=== PATIENT | male | born 1935 | race Caucasian/White ===

== ENCOUNTER 2016-12-13 08:17 | Day surgery (SDC) | payer OTHER ==
[~2016-12-13] VITALS: Ht 161.3 cm; Wt 79.0 kg
[~2016-12-13 08:17] MED LIST: ASPIRIN325 MG PO; ATORVASTATIN PO; CEFTIN500 MG PO; CHOLESTYRAMINE L4 GM PO; CHOLESTYRAMINE PO; CHOLESTYRAMINE378 GM PO; Ceftin PO; FLORASTOR250 MG PO; GLIPIZIDE 10 MG; GLUCOTROL XL10 MG PO; GLUCOTROL10 MG PO; LANTUS 10100 UNITS/; LANTUS 3 M100 UNITS1 SC; LIPITOR80 MG PO; MAVIK2 MG PO; METOPROLOL SUCC50 MG PO; REPAGLINIDE2 MG PO; TAMSULOSIN HCL0.4 MG PO; TOPROL XL50 MG PO; TRANDOLAPRIL2 MG; TRIAMCINOLONE ACETON TD; TYLENOL REGULA325 MG PO; VENLAFAXINE HC150 M1 PO
[2016-12-13 09:19] LABS: POINT-OF-CARE METER ID UU13113696
== END 2016-12-13 15:20 | disposition home or self-care (01) ==
LOC: CATH 08:17
PROVIDERS: Internal Medicine Cardiovascular Disease
DX: I25.10 Atherosclerotic heart disease of native coronary artery without angina pectoris (principal); I25.2 Old myocardial infarction; E11.9 Type 2 diabetes mellitus without complications; I10 Essential (primary) hypertension; E78.5 Hyperlipidemia, unspecified; Z79.82 Long term (current) use of aspirin; Z79.4 Long term (current) use of insulin; Z79.899 Other long term (current) drug therapy; Z85.46 Personal history of malignant neoplasm of prostate
CPT/HCPCS: 82948; 93005; C1769; C1887; J1644; J2250; J3010

== ENCOUNTER 2017-05-01 16:34 | Observation (INO) | payer OTHER ==
[~2017-05-01] VITALS: Ht 162.6 cm; Wt 83.0 kg
[2017-05-01 17:22] LABS: EOSINOPHIL (%) 0.9 % (0-5); EOSINOPHIL COUNT 0.1 K/uL (0-0.3); HEMATOCRIT 45.8 % (38.0-50.0); IMMATURE GRANULOCYTE (%) 0.7 % (0.0-0.7); IMMATURE GRANULOCYTE COUNT 0.1 K/uL; INSTRUMENT ABS NEUTROPHIL CT 5.2 K/uL; LYMPHOCYTE COUNT 2.1 K/uL (1.0-2.8); MCH 30.7 PG (29.0-34.0); MCHC 34.9 G/DL (30.0-36.0); MCV 87.9 FL (86-99); MEAN PLAT.VOLUME 8.6 uM^3 (9.0-12.4); MONOCYTE (%) 7.6 % (3-12); MONOCYTE COUNT 0.6 K/uL (0-0.8); NEUTROPHIL (%) 64.2 % (45-76); NEUTROPHIL COUNT 5.2 K/uL (1.8-6.4); PLATELET COUNT 224 K/uL (156-360); RBC DIS.WIDTH-SD 39.2 % (39-53); RED BLOOD COUNT 5.21 M/uL (4.00-5.50); WHITE BLOOD COUNT 8.2 K/uL (4.1-10.2)
[2017-05-01 17:41] LABS: CHLORIDE 103 mEq/L (99-109); SODIUM 139 mEq/L (136-147)
[2017-05-01 17:44] LABS: GLUCOSE 221 mg/dL (70-99); TROP-I INTERPRETATION NEGATIVE; TROPONIN-I < 0.01 ng/mL (0.0-0.30)
[2017-05-01 17:45] LABS: ANION GAP 19 MEQ/L (2-14)
[2017-05-01 17:46] LABS: TOTAL BILIRUBIN 1.1 mg/dL (0.0-1.0)
[2017-05-01 17:47] LABS: ALKALINE PHOSPHATASE 64 IU/L (3-129); GFR ESTIMATE (CALCULATED) > 59 mL/min/
[2017-05-01 17:48] LABS: UREA NITROGEN (BUN) 15 mg/dL (9-23)
[2017-05-01 17:50] LABS: CREATINE KINASE 60 IU/L (1-294); TOTAL CK 60 IU/L (1-294)
[2017-05-01 18:05] LABS: POTASSIUM 3.6 mEq/L (3.7-5.4)
[2017-05-01 20:57] LABS: TROP-I INTERPRETATION NEGATIVE; TROPONIN-I < 0.01 ng/mL (0.0-0.30)
[2017-05-01 21:09] LABS: ADD MIUA? NO; BILIRUBIN NEGATIVE; BLOOD NEGATIVE; COLOR YELLOW ((YELLOW)); GLUCOSE (STRIP) 150; KETONES 20; LEUKOCYTES NEGATIVE; NITRITE NEGATIVE; PROTEIN (STRIP) 30; SPECIFIC GRAVITY 1.021 (1.000-1.030); UCUL ADDED? NO; UROBILINOGEN 0.2 MG/DL (0.2-1.0)
[2017-05-02 03:26] LABS: TROP-I INTERPRETATION NEGATIVE; TROPONIN-I < 0.01 ng/mL (0.0-0.30)
[2017-05-02 04:32] VITALS: BP 133/68
[2017-05-02 07:34] VITALS: BP 117/60
[2017-05-02 08:16] LABS: POINT-OF-CARE METER ID UU14174216
[2017-05-02 10:07] LABS: CHLORIDE 103 mEq/L (99-109); POTASSIUM 3.9 mEq/L (3.7-5.4); SODIUM 138 mEq/L (136-147)
[2017-05-02 10:08] LABS: GLUCOSE 151 mg/dL (70-99)
[2017-05-02 10:10] LABS: ANION GAP 12 MEQ/L (2-14)
[2017-05-02 10:12] LABS: GFR ESTIMATE (CALCULATED) > 59 mL/min/
[2017-05-02 10:13] LABS: UREA NITROGEN (BUN) 14 mg/dL (9-23)
[2017-05-02 11:07] VITALS: BP 121/58
[2017-05-02 12:11] LABS: POINT-OF-CARE METER ID UU13113698
[2017-05-02] MEDS ORDERED: RANEXA500 MG PO (14:37)
== END 2017-05-02 15:12 | disposition home or self-care (01) ==
LOC: EME 16:34 → EDOF 05-02 01:37 → 4EAST 05-02 01:37 → ENRESERV 05-02 01:39 → 4EAST 05-02 04:05
PROVIDERS: Emergency Medicine; Hospitalist
DX: I25.119 Atherosclerotic heart disease of native coronary artery with unspecified angina pectoris (principal); I25.82 Chronic total occlusion of coronary artery; I25.2 Old myocardial infarction; I11.9 Hypertensive heart disease without heart failure; E78.5 Hyperlipidemia, unspecified; Z85.46 Personal history of malignant neoplasm of prostate; Z79.4 Long term (current) use of insulin; E87.6 Hypokalemia; E11.65 Type 2 diabetes mellitus with hyperglycemia; R09.02 Hypoxemia; Z79.82 Long term (current) use of aspirin; Z85.828 Personal history of other malignant neoplasm of skin; Z87.442 Personal history of urinary calculi; Z88.5 Allergy status to narcotic agent
CPT/HCPCS: 70450; 71010; 80048; 80053; 81003; 82550; 82553; 82948; 83735; 84484; 85025; 93005; 99281; 99285; G0378; J1644; J1815; J2405; J7030